=== PATIENT | female | born 1980 | race American Indian/Alaskan Native ===

== ENCOUNTER 2018-04-13 04:55 | Emergency (ER) | payer BC ==
[2018-04-13] MEDS ORDERED: NORCO 5/325 ONE (05:25)
[2018-04-13] MEDS ORDERED: NORCO 5/325 PO ONE (05:27)
[2018-04-13 05:56] LABS: HCG Qualitative,Urine Negative (Negative)
[2018-04-13] MEDS ORDERED: FUL-GLO OP ONE (06:08)
[2018-04-13] MEDS ORDERED: TETRACAINE 0.5% OU PRN (06:08)
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
[2018-04-13] MEDS: BOOSTRIX IM ONE ×2 (07:23→07:51)
[2018-04-13 08:16] VITALS: BP 139/88
== END 2018-04-13 08:15 | disposition home or self-care (01) ==
LOC: ED 04:55
DX: S00.12XA Contusion of left eyelid and periocular area, initial encounter (principal); H10.31 Unspecified acute conjunctivitis, right eye; J45.909 Unspecified asthma, uncomplicated; F17.200 Nicotine dependence, unspecified, uncomplicated; Z91.010 Allergy to peanuts; Z88.0 Allergy status to penicillin; Y04.8XXA Assault by other bodily force, initial encounter; Y93.89 Activity, other specified; Y92.488 Other paved roadways as the place of occurrence of the external cause; Y99.8 Other external cause status
CPT/HCPCS: 70450; 70486; 72125; 81025; 90471; 90715